=== PATIENT | male | born 1985 | race Caucasian/White ===

== ENCOUNTER 2018-06-27 23:43 | Emergency (ER) | payer MEDICAID ==
[~2018-06-27] VITALS: Ht 182.9 cm; Wt 102.3 kg
[2018-06-28] MEDS ORDERED: LIDOCAINE 1% 10 ML VIAL INJ ONE (00:15)
[2018-06-28] MEDS ORDERED: KETOROLAC TROMETHAMINE 60 MG/2 ML VIAL IM ONE (01:30)
[2018-06-28] MEDS ORDERED: PERTUSS(ACELL),DIPH,TET VAC/PF 0.5 ML VIAL IM ONE (03:45)
[2018-06-28 04:01] VITALS: BP 128/84
== END 2018-06-28 04:03 | disposition home or self-care (01) ==
LOC: EMS 23:45
DX: S63.260A Dislocation of metacarpophalangeal joint of right index finger, initial encounter (principal); S61.411A Laceration without foreign body of right hand, initial encounter; F14.10 Cocaine abuse, uncomplicated; F12.90 Cannabis use, unspecified, uncomplicated; W18.39XA Other fall on same level, initial encounter; Y93.89 Activity, other specified; Y92.89 Other specified places as the place of occurrence of the external cause; Y99.8 Other external cause status
CPT/HCPCS: 12001; 26700; 73130; 90471; 90715; 96372; 99284; J0690; J1885; J3490